=== PATIENT | female | born 1990 | race Hispanic/Latino ===

== ENCOUNTER → 2019-12-21 | Outpatient (CLI) | payer OTHER ==
--- NOTE | 2019-12-21 17:08 | Diagnostic Imaging Report ---
Chest, PA and lateral. History: J410. Comparison: None available. Discussion: The cardiomediastinal silhouette and pulmonary vasculature are within normal limits. The lungs are clear without evidence of consolidation or effusion. There are no acute osseous abnormalities. IMPRESSION: No radiographic evidence of acute cardiopulmonary abnormality. Signed by: Richmond Garcia MD on 12/21/2019 5:05 PM
== END ==
LOC: RAD 16:16
PROVIDERS: ATTEND Internal Medicine
DX: J41.0 Simple chronic bronchitis (principal)
CPT/HCPCS: 71046